=== PATIENT | male | born 1955 | race Caucasian/White ===

== ENCOUNTER 2023-10-19 07:55 | Outpatient (CLI) | payer MEDICARE, SELFPAY ==
--- NOTE | 2023-10-19 09:17 | W.ANESCHARGE ---
Anesthesia Charges Start Date/Time Anesthesia Start Date: 10/19/23 Anesthesia Start Time: 08:58 Stop Date/Time Anesthesia Stop Date: 10/19/23 Anesthesia Stop Time: 09:28
--- NOTE | 2023-10-19 09:30 | W.ANESCHARGE ---
Anesthesia Charges Start Date/Time Anesthesia Start Date: 10/19/23 Anesthesia Start Time: 08:58 Stop Date/Time Anesthesia Stop Date: 10/19/23 Anesthesia Stop Time: 09:28
== END 2023-10-19 07:56 | disposition home or self-care (01) ==
LOC: OP CLINIC 08:00
PROVIDERS: Visit Provider Surgery
DX: Z12.11 Encounter for screening for malignant neoplasm of colon (principal); K63.5 Polyp of colon; Z86.010 Personal history of colon polyps
CPT/HCPCS: 00811; 45385; 88305; J2704